=== PATIENT | female | born 1990 | race African-American/Black ===

== ENCOUNTER 2023-04-04 06:10 | Emergency (ER) | payer MEDICAID ==
[2023-04-04] MEDS: Ibuprofen 200 MG Tab PO ONE (06:39)
[2023-04-04] MEDS: Take Home: Amoxicillin/Clavulanate K 875-125 MG Tab, 2 Tab Pack PO ONE (06:39)
== END 2023-04-04 06:46 | disposition home or self-care (01) ==
LOC: VM.ED 06:10
DX: H66.91 Otitis media, unspecified, right ear (principal)
CPT/HCPCS: 99283; A9270-GY